=== PATIENT | female | born 1970 | race Asian ===

== ENCOUNTER 2018-10-25 06:59 | Day surgery (SDC) | payer OTHER ==
[2018-10-24 11:01] VITALS: Ht 160 cm; Wt 61.0 kg
[~2018-10-25] VITALS: Ht 160 cm; Wt 61.0 kg
[2018-10-25] VITALS (13 sets, daily range): BP systolic 93–125; BP diastolic 58–75; PULSE 60–89; RESP 15–23
[~2018-10-25 06:59] MED LIST: CEFAZOLIN 2 GM/50 ML (PMX) 50 ML IVPB SCH; SOD CHLORIDE 0.9% 1,000 ML IV SCH
[2018-10-25] MEDS ORDERED: LIDOCAINE 2% (SDV) 5 ML INJ ONE (07:00)
[2018-10-25] MEDS ORDERED: MULTI PO (10:31)
[2018-10-25] MEDS ORDERED: FER325 PO (10:31)
[2018-10-25] MEDS ORDERED: BUPIVACAINE 0.5%/EPI (SDV) 30 ML INJ ONE (12:05)
--- NOTE | 2018-10-25 12:17 | PREAC ---
Date/Time of Note Date/Time of Note DATE: 10/25/18 TIME: 12:16 Anesthesia Eval and Record Evaluation Time Pre-Procedure Interview DATE: 10/25/18 TIME: 12:16 Age 48 Sex female NPO: 8 hrs Preoperative diagnosis right breast ca Planned procedure right partial mastectomy Past Medical History Past Medical History: None Surgery & Anesthesia Issues No known issue Meds Anticoagulation: No Beta Delores within 24 hr: No Reason Beta Delores not given: Pt. not on B-Delores Reported Medications Multivitamins* (Theragran*) 1 Tab Tab, 1 TAB PO DAILY, TAB 10/25/18 Ferrous Sulfate* (Ferrous Sulfate*) 325 Mg Tabec, 325 MG PO DAILY, TAB 10/25/18 Current Medications Sodium Chloride 1,000 ml @ 75 mls/hr [id number] IV ; Start 10/25/18 at 06:00; Stop 10/25/18 at 16:00 Cefazolin Sodium/ Dextrose 50 ml @ 100 mls/hr PREOP IVPB ; Start 10/25/18 at 06:00; Stop 10/25/18 at 16:00 Meds reviewed: Yes Allergies Coded Allergies: doxycycline (Verified Allergy, Mild, RASH, EYES GET SWOLLEN , 10/25/18) Allergies Reviewed: Yes Labs/Studies Labs Reviewed: Reviewed by anesthesiologist test: Negative Pre-procedure Exam Last vitals Vital Signs Date Temp Pulse Resp B/P (MAP) Pulse Ox O2 O2 Flow FiO2 Time Delivery Rate 10/25/18 97.6 83 18 125/75 100 Room Air 10:24 (92) Airway: Adequate mouth opening, Adequate thyromental dist Mallampati: Mallampati I Teeth: Normal Lung: Normal Heart: Normal ASA Physical Status ASA physical status: 2 Emergency: None Planned Anesthetic General/MAC: LMA Planned Pain Management Parenteral pain med Pre-operative Attestations Prior to commencing anesthesia and surgery, the patient was re-evaluated, there was verification of: *The patient's identity *The results of appropriate recent lab work and preoperative vital signs *The above evaluation not changing prior to induction *Anesthetic plan, risk benefits, alternative and complications discussed with patient/family; questions answered; patient/family understands, accepts and wishes to proceed. LUZ MARIA CHANG Oct 25, 2018 12:17
[2018-10-25] MEDS ORDERED: PROPOFOL 100 ML ONE (12:23)
[2018-10-25] MEDS ORDERED: ROCURONIUM 50 MG INJ ONE (12:27)
[2018-10-25] MEDS ORDERED: CEFAZOLIN 1 GM INJ ONE (12:42)
[2018-10-25] MEDS ORDERED: ONDANSETRON 4 MG INJ ONE (12:43)
[2018-10-25] MEDS ORDERED: DEXAMETHASONE 4 MG/ML 5 ML INJ ONE (12:43)
[2018-10-25] MEDS ORDERED: GLYCOPYRROLATE 0.4 MG INJ ONE (13:47)
[2018-10-25] MEDS ORDERED: NEOSTIGMINE 3 MG/3 ML SYRINGE ONE (13:47)
--- NOTE | 2018-10-25 13:55 | OPR ---
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 The patient had a stereotactic biopsy which showed atypical ductal hyperplasia. Given the above findings the patient was scheduled for elective right partial mastectomy with wire needle localization for complete excision and definitive pathological diagnosis. All risks and benefits of the procedure including, but not limited to: Wound infection, excessive bleeding, postoperative seroma/hematoma formation, possible need for subsequent surgeries, loss of nipple areolar sensation, etc. were explained to the patient in full detail. She fully understood and wished to proceed with the procedure. Informed consent was obtained. Procedure Description The patient was brought to the operating room and placed supine on the operating table. Bilateral sequential compression devices were placed on both lower extremities. A dose of broad-spectrum perioperative intravenous antibiotics was given. Patient had undergone preoperative wire needle localization. After the induction of smooth general anesthesia the patient's right breast and chest wall were prepped and draped in standard surgical fashion. After performance of the surgical timeout 0.5% Marcaine with epinephrine was injected around the area of the incision. An incision was then made using a 15 blade scalpel from approximately the 12:00 location to the 1:00 location of the right breast. Incision was carried down through the skin and subcutaneous tissues to the level of breast tissue using sharp dissection and Bovie electrocautery. Flaps were then raised circumferentially. The wire needle was identified. Its external portion was cut. The wire was then delivered through the skin into the field. Circumferential core of tissue was then dissected around the wire down to the level of the chest wall. The specimen was then transected at its base. Marking sutures were used to zunilda the superior and medial aspects. Specimen was then passed off the field. Intraoperative mammography showed the specimen to contain the calcifications and the prior biopsy clip in its entirety. At this point hemostasis was inspected for and noted to be total. The wound cavity was irrigated and the irrigant returned clear. The wound was then closed in layers using interrupted 3-0 Vicryl sutures for the dermal layer. The skin was then reapproximated using a running 4-0 Monocryl suture in subcuticular fashion. Incision was cleaned and Dermabond was applied as well as sports bra. The patient was then awoken from anesthesia and transferred to the recovery room in stable condition. All counts were correct at the end of the case 2. ALLAN SHIRLEY MD Oct 25, 2018 13:55
--- NOTE | 2018-10-25 13:57 | PAC ---
Date/Time of Note Date/Time of Note DATE: 10/25/18 TIME: 13:56 Post-Anesthesia Notes Post-Anesthesia Note Last documented vital signs Vital Signs Date Temp Pulse Resp B/P (MAP) Pulse Ox O2 O2 Flow FiO2 Time Delivery Rate 10/25/18 97.6 83 18 125/75 100 Room Air 1357 (92) Activity: WNL Respiratory function: WNL Cardiovascular function: WNL Mental status: Baseline Pain reasonably controlled: Yes Hydration appropriate: Yes Nausea/Vomiting absent: Yes LUZ MARIA CHANG Oct 25, 2018 13:57
[2018-10-25] MEDS ORDERED: FENTAnyl 50 MCG/ML VIAL IV PRN ×3 (14:00)
[2018-10-25] MEDS ORDERED: HYDROmorphONE 1 MG/5 ML IV SYRINGE IV PRN ×3 (14:00)
[2018-10-25] MEDS ORDERED: DIPHENHYDRAMINE 50 MG INJ IV PRN (14:00)
[2018-10-25] MEDS ORDERED: IBUPROFEN 600 MG TAB PO PRN (14:00)
[2018-10-25] MEDS ORDERED: MEPERIDINE 25 MG INJ IV PRN (14:00)
[2018-10-25] MEDS ORDERED: ONDANSETRON 4 MG INJ IV PRN ×2 (14:00)
[2018-10-25] MEDS ORDERED: hydrALAzine 20 MG INJ IV PRN (14:00)
[2018-10-25] MEDS ORDERED: ALBUTEROL 0.083% (NEB) 2.5 MG/3 ML AMP HHN PRN (14:00)
[2018-10-25] MEDS ORDERED: KETOROLAC 30 MG INJ IV PRN ×2 (14:00)
[2018-10-25] MEDS ORDERED: EPHEDrine SULFATE 50 MG/5 ML SYG IV PRN (14:00)
[2018-10-25] MEDS ORDERED: METOCLOPRAMIDE 10 MG INJ IV PRN (14:00)
[2018-10-25] MEDS ORDERED: LABETALOL HCL 20MG INJ IV PRN (14:00)
[2018-10-25] MEDS ORDERED: OXYCODONE/ACETAMINOPHEN (5/325) TAB PO PRN ×2 (14:00)
== END 2018-10-25 15:35 | disposition home or self-care (01) ==
LOC: SDS 06:59
PROVIDERS: ATTEND Surgery
DX: D24.1 Benign neoplasm of right breast (principal)
CPT/HCPCS: 19301; 88307; J0690; J1100; J2405; J2710; J3010